=== PATIENT | female | born 1940 | race Caucasian/White ===

== ENCOUNTER 2017-02-20 09:22 | Outpatient (CLI) | payer MEDICARE, OTHER ==
[~2017-02-20 09:22] MED LIST: LANS15CA18 PO; TRAM50TA2 PO
== END 2017-02-20 23:59 | disposition home or self-care (01) ==
LOC: RAD 09:22
PROVIDERS: ATTEND Family Medicine
DX: I61.9 Nontraumatic intracerebral hemorrhage, unspecified (principal); S09.90XA Unspecified injury of head, initial encounter; G31.9 Degenerative disease of nervous system, unspecified; K59.1 Functional diarrhea; X58.XXXA Exposure to other specified factors, initial encounter; Y93.89 Activity, other specified; Y92.89 Other specified places as the place of occurrence of the external cause; Y99.8 Other external cause status
CPT/HCPCS: 70551; 76700; 76856

== ENCOUNTER 2017-09-06 02:58 | Outpatient (CLI) | payer SELFPAY ==
[2017-09-08] MEDS ORDERED: CEPH500C2 PO (01:02)
[2017-09-08] MEDS ORDERED: TRIA15CR61 TOP (01:02)
[2017-09-08] MEDS ORDERED: CETI10CA PO (01:02)
[2017-09-08] MEDS ORDERED: DIPH25CA83 PO (01:02)
== END 2017-09-06 23:59 | disposition home or self-care (01) ==
LOC: HW VAS 02:58
DX: Z13.6 Encounter for screening for cardiovascular disorders (principal)

== ENCOUNTER 2018-04-16 08:54 | Inpatient (IN) | payer MEDICARE, OTHER | END 2018-04-17 15:30 | disposition home or self-care (01) | LOC: PAS IN 08:54 → ORTHO 4S 16:35 | DX: M25.511 Pain in right shoulder (principal); D62 Acute posthemorrhagic anemia; M19.011 Primary osteoarthritis, right shoulder; M75.121 Complete rotator cuff tear or rupture of right shoulder, not specified as traumatic; S42.101S Fracture of unspecified part of scapula, right shoulder, sequela; M81.0 Age-related osteoporosis without current pathological fracture; Z86.73 Personal history of transient ischemic attack (TIA), and cerebral infarction without residual deficits ==

== ENCOUNTER 2018-07-12 10:44 | Outpatient (CLI) | payer MEDICARE, OTHER ==
[~2018-07-12 10:44] MED LIST changes: +ACET325T55 PO; +ASPI-1 PO; +CHOL10002 PO; -LANS15CA18 PO; +LOSA100T57 PO; +METO-395 PO; +OSC500T PO; +TERI2.4P SUBCUT; -TRAM50TA2 PO
== END 2018-07-12 23:59 | disposition home or self-care (01) ==
LOC: RAD 10:44
PROVIDERS: ATTEND Family Medicine
DX: R19.7 Diarrhea, unspecified (principal); Z87.891 Personal history of nicotine dependence
CPT/HCPCS: 76700

== ENCOUNTER 2019-05-14 11:41 | Emergency (ER) | payer MEDICARE, OTHER ==
[~2019-05-14] VITALS: Ht 167.6 cm; Wt 67.9 kg
[2019-05-14] MEDS ORDERED: ondansetron/PF 4mg/2ml inj IV ONE (12:20)
[2019-05-14] MEDS ORDERED: normal saline 1000ml 1,000 ML IV ONE ×2 (12:20→13:05)
[2019-05-14 12:44] LABS: BASOPHILS % (AUTO) 0.4 % (0-1); EOSINOPHILS % (AUTO) 0.4 % (0-6); HEMATOCRIT 41.6 % (35.0-45.0); HEMOGLOBIN 14.1 g/dl (12.0-16.0); LYMPHOCYTES % (AUTO) 23.3 % (21-51); MEAN CORPUSCULAR HEMOGLOBIN 29.8 PG (27.0-31.0); MEAN CORPUSCULAR HGB CONC 33.9 g/dL (33.0-36.5); MEAN PLATELET VOLUME 8.7 FL (7.4-10.4); MONOCYTES # (AUTO) 0.5 X10'3 (0-0.9); MONOCYTES % (AUTO) 10.9 % (2-12); NEUTROPHILS # (AUTO) 2.7 X10'3 (1.8-7.7); PLATELET COUNT 202 X10'3 (140-440); RED BLOOD COUNT 4.73 X10'6 (4.20-5.60); RED CELL DISTRIBUTION WIDTH 13.7 % (11.5-14.5); WHITE BLOOD COUNT 4.2 X10'3 (4.5-11.0)
[2019-05-14 12:56] LABS: PARTIAL THROMBOPLASTIN TIME 28 SECONDS (22-32)
[2019-05-14 12:58] LABS: ALANINE AMINOTRANSFERASE 25 U/L (12-78); ALBUMIN 3.6 G/DL (3.4-5.0); ALKALINE PHOSPHATASE 75 IU/L (46-116); ANION GAP 10 (8-16); ASPARTATE AMINO TRANSFERASE 43 U/L (10-37); BILIRUBIN,TOTAL 0.3 MG/DL (0.1-1.0); BLOOD UREA NITROGEN 27 MG/DL (7-18); BUN/CREATININE RATIO 20.9 (6.6-38.0); CALCIUM 8.9 MG/DL (8.5-10.1); CHLORIDE 97 MMOL/L (99-107); CREATININE 1.29 MG/DL (0.40-0.90); GLUCOSE 91 MG/DL (70-104); POTASSIUM 3.5 MMOL/L (3.5-5.1); SODIUM 133 MMOL/L (135-145); TOTAL CARBON DIOXIDE 26.3 MMOL/L (24-32); TOTAL PROTEIN 7.1 G/DL (6.4-8.2); eGFR 40 ML/MIN
[2019-05-14 13:03] LABS: TROPONIN I < 0.04 NG/ML (0.0-0.05)
[2019-05-14 14:55] LABS: CLARITY,URINE CLOUDY (Clear); COLOR,URINE YELLOW (Yellow); GLUCOSE, URINE NEGATIVE (Neg); KETONES,URINE NEGATIVE (Neg); LEUKOCYTE ESTERASE ,URINE SMALL (Neg); NITRITES, URINE NEGATIVE (Neg); OCCULT BLOOD,URINE SMALL (Neg); PROTEIN,URINE 30 mg/dl (Neg); UA COLLECTION TYPE CLN CATCH MIDSTREAM
[2019-05-14 15:09] LABS: BACTERIA,URINE 4+ /HPF (Neg); SQUAMOUS EPITHELIAL CELL,UR MANY /LPF (FEW)
[2019-05-14 15:10] LABS: WBC,URINE TNTC /HPF (0-4)
[2019-05-14 16:06] VITALS: BP 105/70
--- NOTE | 2019-05-17 15:25 | NUR ---
SMS MESSAGE LEFT WITH OUR PHONE NUMBER. UNABLE TO LEAVE A VERBAL MESSAGE
--- NOTE | 2019-05-20 19:00 | NUR ---
CALL PLACED TO PT FOR POSITIVE URINE CULTURE RESULTS, PT ASKED THAT RX BE CALLED IN TO [facility], RX FOR KEFLEX 500MG PO QID X [address] MORELAND CALLED IN.
== END 2019-05-14 16:08 | disposition home or self-care (01) ==
LOC: ER 11:41
DX: E86.0 Dehydration (principal); I10 Essential (primary) hypertension; Z90.89 Acquired absence of other organs; Z87.891 Personal history of nicotine dependence; Z79.82 Long term (current) use of aspirin; Z79.899 Other long term (current) drug therapy
CPT/HCPCS: 36415; 70450; 71045; 80053; 81001; 83605; 84145; 84484; 85025; 85610; 85730; 87040; 87077; 87088; 87186; 93005; 96361; 96374; 99285; J2405; J7030

== ENCOUNTER 2019-10-01 09:26 | Day surgery (SDC) | payer MEDICARE, OTHER ==
[~2019-10-01 09:26] MED LIST changes: -ACET325T55 PO; +AMLO5TAB16 PO; -ASPI-1 PO; -CHOL10002 PO; +LEVO750T21 PO; +METO-384 PO; -METO-395 PO; +OMEP-50 PO; -OSC500T PO; -TERI2.4P SUBCUT; +WARF4TAB69 PO
[2019-10-01] MEDS ORDERED: LIDOcaine 2% 5ml jelly ONE (10:01)
== END 2019-10-01 11:03 | disposition home or self-care (01) ==
LOC: WOUND CARE 09:26
PROVIDERS: ATTEND Nurse Practitioner
DX: L97.122 Non-pressure chronic ulcer of left thigh with fat layer exposed (principal); L02.416 Cutaneous abscess of left lower limb; I10 Essential (primary) hypertension; K21.9 Gastro-esophageal reflux disease without esophagitis; E89.2 Postprocedural hypoparathyroidism; E87.1 Hypo-osmolality and hyponatremia; E87.6 Hypokalemia; I48.0 Paroxysmal atrial fibrillation; E46 Unspecified protein-calorie malnutrition; Z79.01 Long term (current) use of anticoagulants; Z79.899 Other long term (current) drug therapy; Z87.891 Personal history of nicotine dependence; Z90.49 Acquired absence of other specified parts of digestive tract; Z68.26 Body mass index [BMI] 26.0-26.9, adult
CPT/HCPCS: 97597; 97598

== ENCOUNTER 2019-10-08 09:33 | Day surgery (SDC) | payer MEDICARE, OTHER ==
[2019-10-08] MEDS ORDERED: LIDOcaine 2% 5ml jelly ONE (10:01)
== END 2019-10-08 10:36 | disposition home or self-care (01) ==
LOC: WOUND CARE 09:33
PROVIDERS: ATTEND Nurse Practitioner
DX: L97.122 Non-pressure chronic ulcer of left thigh with fat layer exposed (principal); L02.416 Cutaneous abscess of left lower limb; I10 Essential (primary) hypertension; K21.9 Gastro-esophageal reflux disease without esophagitis; E89.2 Postprocedural hypoparathyroidism; E87.1 Hypo-osmolality and hyponatremia; E87.6 Hypokalemia; I48.0 Paroxysmal atrial fibrillation; E46 Unspecified protein-calorie malnutrition; Z79.01 Long term (current) use of anticoagulants; Z79.899 Other long term (current) drug therapy; Z87.891 Personal history of nicotine dependence; Z90.49 Acquired absence of other specified parts of digestive tract; Z68.26 Body mass index [BMI] 26.0-26.9, adult
CPT/HCPCS: 97597; 97598

== ENCOUNTER → 2019-10-29 | Day surgery (SDC) | payer MEDICARE, OTHER ==
[~2019-10-29] MED LIST changes: +LIDOcaine 2% 5ml jelly ONE
== END | disposition home or self-care (01) ==
LOC: WOUND CARE 09:45
PROVIDERS: ATTEND Nurse Practitioner
DX: L97.122 Non-pressure chronic ulcer of left thigh with fat layer exposed (principal); L02.416 Cutaneous abscess of left lower limb; I10 Essential (primary) hypertension; K21.9 Gastro-esophageal reflux disease without esophagitis; E89.2 Postprocedural hypoparathyroidism; E87.1 Hypo-osmolality and hyponatremia; E87.6 Hypokalemia; I48.0 Paroxysmal atrial fibrillation; E46 Unspecified protein-calorie malnutrition; Z79.01 Long term (current) use of anticoagulants; Z79.899 Other long term (current) drug therapy; Z87.891 Personal history of nicotine dependence; Z90.49 Acquired absence of other specified parts of digestive tract; Z68.26 Body mass index [BMI] 26.0-26.9, adult
CPT/HCPCS: 97597

== ENCOUNTER 2020-09-19 10:32 | Emergency (ER) | payer MEDICARE, OTHER ==
[~2020-09-19] VITALS: Ht 167.6 cm; Wt 72.7 kg
[~2020-09-19 10:32] MED LIST changes: -LEVO750T21 PO; -LIDOcaine 2% 5ml jelly ONE
[2020-09-19] MEDS ORDERED: HYDR-3965 PO (12:56)
[2020-09-19] MEDS ORDERED: DICL20GE TP (12:56)
[2020-09-19] MEDS ORDERED: WALKERFR ×2 (13:27→13:28)
== END 2020-09-19 13:13 | disposition home or self-care (01) ==
LOC: ER 10:32
DX: M25.562 Pain in left knee (principal); I10 Essential (primary) hypertension; E07.9 Disorder of thyroid, unspecified; Z90.49 Acquired absence of other specified parts of digestive tract; Z98.890 Other specified postprocedural states; Z79.899 Other long term (current) drug therapy; Z79.01 Long term (current) use of anticoagulants; Z96.652 Presence of left artificial knee joint
CPT/HCPCS: 73502; 73564; 99284

== ENCOUNTER 2020-12-28 20:58 | Emergency (ER) | payer MEDICARE, OTHER ==
[~2020-12-28] VITALS: Ht 167.6 cm; Wt 70.0 kg
[~2020-12-28 20:58] MED LIST changes: +DICL20GE TP; +WALKERFR
[2020-12-28 23:36] VITALS: BP 122/79
== END 2020-12-29 02:00 | disposition home or self-care (01) ==
LOC: ER 20:58
DX: S06.0X0A Concussion without loss of consciousness, initial encounter (principal); I48.91 Unspecified atrial fibrillation; I10 Essential (primary) hypertension; Z90.89 Acquired absence of other organs; Z98.890 Other specified postprocedural states; Z79.899 Other long term (current) drug therapy; W19.XXXA Unspecified fall, initial encounter; Y93.89 Activity, other specified; Y92.89 Other specified places as the place of occurrence of the external cause; Y99.8 Other external cause status
CPT/HCPCS: 70450; 72125; 93005; 99285

== ENCOUNTER 2021-10-29 16:38 | Emergency (ER) | payer MEDICARE, OTHER ==
[~2021-10-29] VITALS: Ht 167.6 cm; Wt 71.8 kg
[~2021-10-29 16:38] MED LIST changes: -OMEP-50 PO; +OMEP20CA16 PO
[2021-10-29 22:20] VITALS: BP 175/83
[2021-10-29 22:44] LABS: BASOPHILS % (AUTO) 0.4 % (0-1); EOSINOPHILS # (AUTO) 0.2 X10'3 (0-0.9); EOSINOPHILS % (AUTO) 2.9 % (0-6); HEMATOCRIT 34.8 % (35.0-45.0); HEMOGLOBIN 11.7 g/dl (12.0-16.0); LYMPHOCYTES # (AUTO) 1.5 X10'3 (1.1-4.8); LYMPHOCYTES % (AUTO) 27.2 % (21-51); MEAN CORPUSCULAR HEMOGLOBIN 29.6 PG (27.0-31.0); MEAN CORPUSCULAR HGB CONC 33.6 g/dL (33.0-36.5); MEAN PLATELET VOLUME 7.8 FL (7.4-10.4); MONOCYTES # (AUTO) 0.4 X10'3 (0-0.9); NEUTROPHILS # (AUTO) 3.4 X10'3 (1.8-7.7); NEUTROPHILS % (AUTO) 62.5 % (42-75); PLATELET COUNT 269 X10'3 (140-440); RED BLOOD COUNT 3.96 X10'6 (4.20-5.60); RED CELL DISTRIBUTION WIDTH 15.6 % (11.5-14.5); WHITE BLOOD COUNT 5.4 X10'3 (4.5-11.0)
[2021-10-29 22:58] LABS: ALANINE AMINOTRANSFERASE 64 U/L (12-78); ALBUMIN 3.4 G/DL (3.4-5.0); ALBUMIN/GLOBULIN RATIO 0.9 (1.1-1.5); ALKALINE PHOSPHATASE 143 IU/L (46-116); ANION GAP 11 (8-16); ASPARTATE AMINO TRANSFERASE 49 U/L (10-37); BILIRUBIN,TOTAL 0.3 MG/DL (0.1-1.0); BLOOD UREA NITROGEN 22 MG/DL (7-18); BUN/CREATININE RATIO 23.9 (6.6-38.0); CALCIUM 8.2 MG/DL (8.5-10.1); CHLORIDE 102 MMOL/L (99-107); CREATININE 0.92 MG/DL (0.40-0.90); GLUCOSE 100 MG/DL (70-104); POTASSIUM 3.7 MMOL/L (3.5-5.1); SODIUM 136 MMOL/L (135-145); TOTAL CARBON DIOXIDE 23.4 MMOL/L (24-32); eGFR 59 ML/MIN
[2021-10-29 22:59] LABS: APTT 45 SECONDS (22-32)
[2021-10-29] MEDS ORDERED: acetaminophen 325mg tablet PO ONE (23:25)
== END 2021-10-29 23:53 | disposition home or self-care (01) ==
LOC: ER 16:38
DX: S22.49XA Multiple fractures of ribs, unspecified side, initial encounter for closed fracture (principal); J90 Pleural effusion, not elsewhere classified; M54.89 Other dorsalgia; R05.9 Cough, unspecified; I48.91 Unspecified atrial fibrillation; I10 Essential (primary) hypertension; Z90.89 Acquired absence of other organs; Z98.890 Other specified postprocedural states; Z79.899 Other long term (current) drug therapy; W19.XXXA Unspecified fall, initial encounter; Y93.89 Activity, other specified; Y92.89 Other specified places as the place of occurrence of the external cause; Y99.8 Other external cause status; M54.2 Cervicalgia
CPT/HCPCS: 36415; 71045; 71250; 72125; 72128; 73030; 80053; 85025; 85610; 85730; 99285

== ENCOUNTER 2022-11-16 09:58 | Emergency (ER) | payer MEDICARE, OTHER, MEDICAID ==
[~2022-11-16] VITALS: Ht 167.6 cm; Wt 64.6 kg
[~2022-11-16 09:58] MED LIST changes: -LOSA100T57 PO; +LOSA100T58 PO
[2022-11-16 10:04] VITALS: TEMP 98
[2022-11-16 12:49] VITALS: BP 159/82; PULSE 65; RESP 16; O2SAT 99
[2022-11-16] MEDS ORDERED: acetaminophen 325mg tablet PO ONE (14:00)
== END 2022-11-16 14:49 | disposition home or self-care (01) ==
LOC: ER 09:59
DX: S01.01XA Laceration without foreign body of scalp, initial encounter (principal); S40.012A Contusion of left shoulder, initial encounter; I10 Essential (primary) hypertension; Z79.899 Other long term (current) drug therapy; Z79.1 Long term (current) use of non-steroidal anti-inflammatories (NSAID); Z98.890 Other specified postprocedural states; W19.XXXA Unspecified fall, initial encounter; Y93.89 Activity, other specified; Y92.89 Other specified places as the place of occurrence of the external cause; Y99.8 Other external cause status
CPT/HCPCS: 12001; 70450; 99284

== ENCOUNTER 2023-05-23 07:34 | Day surgery (SDC) | payer MEDICARE, MEDICAID ==
[2023-05-22 15:42] LABS: BASOPHILS % (AUTO) 0.4 % (0-1); EOSINOPHILS # (AUTO) 0.2 X10'3 (0-0.9); EOSINOPHILS % (AUTO) 2.8 % (0-6); HEMATOCRIT 37.1 % (35.0-45.0); HEMOGLOBIN 12.3 g/dl (12.0-16.0); LYMPHOCYTES # (AUTO) 1.2 X10'3 (1.1-4.8); LYMPHOCYTES % (AUTO) 17.6 % (21-51); MEAN CORPUSCULAR HEMOGLOBIN 29.7 PG (27.0-31.0); MEAN CORPUSCULAR HGB CONC 33.2 g/dL (33.0-36.5); MEAN CORPUSCULAR VOLUME 89.4 FL (78-98); MONOCYTES # (AUTO) 0.4 X10'3 (0-0.9); MONOCYTES % (AUTO) 6.7 % (2-12); NEUTROPHILS # (AUTO) 4.9 X10'3 (1.8-7.7); NEUTROPHILS % (AUTO) 72.5 % (42-75); PLATELET COUNT 237 X10'3 (140-440); RED BLOOD COUNT 4.15 X10'6 (4.20-5.60); RED CELL DISTRIBUTION WIDTH 14.5 % (11.5-14.5); WHITE BLOOD COUNT 6.7 X10'3 (4.5-11.0)
[2023-05-22 15:48] LABS: ALBUMIN 3.4 G/DL (3.4-5.0); ANION GAP 11 (8-16); BLOOD UREA NITROGEN 22 MG/DL (7-18); BUN/CREATININE RATIO 17.9 (10.0-20.0); CALCIUM 8.1 MG/DL (8.5-10.1); CHLORIDE 105 MMOL/L (99-107); CREATININE 1.23 MG/DL (0.40-0.90); GLUCOSE 100 MG/DL (70-104); POTASSIUM 4.3 MMOL/L (3.5-5.1); SODIUM 141 MMOL/L (135-145); eGFR 42 ML/MIN
[2023-05-22 15:53] LABS: APTT 30 SECONDS (22-32); INR 1.2 INR; PROTHROMBIN TIME 12.3 SECONDS (9.0-12.0)
[2023-05-23] VITALS (14 sets, daily range): BP systolic 103–145; BP diastolic 44–78; PULSE 64–84; RESP 12–26; TEMP 97.7; O2SAT 93–96
[~2023-05-23] VITALS: Ht 167.6 cm; Wt 73.1 kg
[2023-05-23] MEDS: LORazepam 0.5 MG tablet PO PRN (08:31)
[2023-05-23] MEDS: sodium bicarbonate 1meq/ml syr 150 ML in dextrose 5%-water 1,000 ML IV SCH (08:31)
[2023-05-23] MEDS: diphenhydrAMINE 25mg capsule PO PRN (08:31)
[2023-05-23] MEDS: normal saline 1,000 ML IV SCH (08:31)
[2023-05-23] MEDS ORDERED: ADV50250 NAS (08:42)
[2023-05-23] MEDS ORDERED: CETI-194 PO (08:42)
[2023-05-23] MEDS ORDERED: OXYB5TAB21 PO (08:42)
[2023-05-23] MEDS ORDERED: ATOR10TA70 PO (08:42)
[2023-05-23] MEDS ORDERED: ACET-1008 PO (09:08)
[2023-05-23] MEDS ORDERED: WARF-55 PO (09:08)
[2023-05-23] MEDS ORDERED: CYAN50007 PO (09:08)
[2023-05-23] MEDS ORDERED: FLUT16SP BOTHNARES (09:08)
[2023-05-23] MEDS ORDERED: pneumococcal 23-VAL P-sac vacc 25 mcg/0.5ml vial IMVAC ONE (09:20)
[2023-05-23] MEDS ORDERED: LIDOcaine 1% (10mg/ml) 2ml vial ONE (10:08)
[2023-05-23] MEDS ORDERED: midazolam 1 mg/ML 2ml injection ONE (10:08)
[2023-05-23] MEDS ORDERED: iohexol 350MG/ML 100ml bottle IV ONE (10:08)
[2023-05-23] MEDS ORDERED: verapamil 2.5 mg/ml inj IV ONE (10:08)
[2023-05-23] MEDS ORDERED: fentaNYL/PF 50MCG/1 ML 2ML syringe ONE (10:08)
[2023-05-23] MEDS ORDERED: heparin 1,000unit/ml 10ml vial 10 ML ONE (10:08)
[2023-05-23] MEDS ORDERED: nitroGLYCERIN 500mcg/5mL D5W 5 ML IV ONE (10:09)
[2023-05-23] MEDS ORDERED: hydrALAZINE 20mg/ml inj. IV ONE (11:12)
== END 2023-05-23 16:20 | disposition home or self-care (01) ==
LOC: SSTAY O 07:34
PROVIDERS: ATTEND Internal Medicine Cardiovascular Disease
DX: R94.39 Abnormal result of other cardiovascular function study (principal); I25.10 Atherosclerotic heart disease of native coronary artery without angina pectoris; E78.5 Hyperlipidemia, unspecified; I47.10 Supraventricular tachycardia, unspecified; K21.9 Gastro-esophageal reflux disease without esophagitis; I12.9 Hypertensive chronic kidney disease with stage 1 through stage 4 chronic kidney disease, or unspecified chronic kidney disease; N18.9 Chronic kidney disease, unspecified; F32.A Depression, unspecified; M81.0 Age-related osteoporosis without current pathological fracture; I48.0 Paroxysmal atrial fibrillation; I36.1 Nonrheumatic tricuspid (valve) insufficiency; I27.29 Other secondary pulmonary hypertension; Z23 Encounter for immunization; Z79.01 Long term (current) use of anticoagulants; Z79.899 Other long term (current) drug therapy; Z98.890 Other specified postprocedural states; Z88.8 Allergy status to other drugs, medicaments and biological substances
CPT/HCPCS: 36415; 76937; 80048; 85025; 85610; 85730; 90732; 93005; 93458; 99152; 99153; A6258; G0009; J0360; J1644; J2250; J3010; J3490; J7030; J7070; Q0163; Q9967; A6402; C1725; C1894

== ENCOUNTER 2023-06-25 06:31 | Inpatient (IN) | payer MEDICARE, MEDICAID ==
[2023-06-19 14:48] LABS: BASOPHILS % (AUTO) 0.3 % (0-1); EOSINOPHILS # (AUTO) 0.2 X10'3 (0-0.9); EOSINOPHILS % (AUTO) 2.3 % (0-6); LYMPHOCYTES # (AUTO) 1.3 X10'3 (1.1-4.8); LYMPHOCYTES % (AUTO) 18.6 % (21-51); MEAN CORPUSCULAR HEMOGLOBIN 29.7 PG (27.0-31.0); MEAN CORPUSCULAR HGB CONC 33.3 g/dL (33.0-36.5); MEAN CORPUSCULAR VOLUME 89.3 FL (78-98); MEAN PLATELET VOLUME 8.6 FL (7.4-10.4); MONOCYTES # (AUTO) 0.5 X10'3 (0-0.9); MONOCYTES % (AUTO) 6.9 % (2-12); NEUTROPHILS # (AUTO) 5.2 X10'3 (1.8-7.7); NEUTROPHILS % (AUTO) 71.9 % (42-75); PRE OP HEMATOCRIT 35.4 % (35.0-45.0); PRE OP HEMOGLOBIN 11.8 g/dL (12.0-16.0); PRE OP PLATELET COUNT 239 X10'3 (140-440); PRE OP WHITE BLOOD COUNT 7.2 10'3 (4.8-10.8); RED BLOOD COUNT 3.97 X10'6 (4.20-5.60); RED CELL DISTRIBUTION WIDTH 15.7 % (11.5-14.5)
[2023-06-19 15:07] LABS: ALBUMIN 3.1 G/DL (3.4-5.0); ALBUMIN/GLOBULIN RATIO 0.8 (1.1-1.5); ALKALINE PHOSPHATASE 104 IU/L (46-116); BLOOD UREA NITROGEN 23 MG/DL (7-18); BUN/CREATININE RATIO 20.2 (10.0-20.0); CALCIUM 8.5 MG/DL (8.5-10.1); CHLORIDE 106 MMOL/L (99-107); CREATININE 1.14 MG/DL (0.40-0.90); PRE OP ALT 21 U/L (30-65); PRE OP ANION GAP 11 (8-16); PRE OP AST 19 U/L (10-37); PRE OP BILIRUB, TOTAL 0.4 MG/DL (0.0-1.0); PRE OP GLUCOSE 97 MG/DL (70-104); PRE OP POTASSIUM 3.9 MMOL/L (3.4-5.1); PRE OP SODIUM 142 MMOL/L (135-145); TOTAL CARBON DIOXIDE 25.2 MMOL/L (24-32); eGFR 46 ML/MIN
[2023-06-25] VITALS (27 sets, daily range): BP systolic 115–144; BP diastolic 57–85; PULSE 57–82; RESP 10–20; TEMP 96.6–97.6; O2SAT 91–98
[~2023-06-25] VITALS: Ht 167.6 cm; Wt 73.5 kg
[2023-06-25] MEDS: DOCUMENT DATE & TIME OF BETA-BLOCKER PO ONE (05:30)
[~2023-06-25 06:31] MED LIST changes: +ACET-1008 PO; +ATOR10TA70 PO; +CALC-1215 PO; +CYAN500T46 PO; -DICL20GE TP; +FLUT16SP BOTHNARES; +LORA10TA7 PO; +MULT-1141 PO; +OXYB5TAB21 PO; +PSYL575P22 PO; +TRAM50TA2 PO; -WALKERFR; +WARF-55 PO; -WARF4TAB69 PO
[2023-06-25] MEDS ORDERED: tetracaine 1% (10mg/ml) pres. free inj. ONE (07:08)
[2023-06-25] MEDS: famotidine 20mg tablet PO ONE (07:42)
[2023-06-25] MEDS: ringers solution, lacted 1,000 ML IV SCH ×2 (07:43→08:40)
[2023-06-25] MEDS: vancomycin/NS 1 GM in NS 250 ML IV ONE (07:58)
[2023-06-25] MEDS: aspirin 325mg tablet PO SCH (08:30)
[2023-06-25] MEDS ORDERED: fentaNYL/PF 50MCG/1 ML 2ML syringe IV PRN ×2 (08:40)
[2023-06-25] MEDS ORDERED: morphine 4 MG/ML inj SYRINge IV PRN (08:40)
[2023-06-25] MEDS ORDERED: hydrALAZINE 20mg/ml inj. IV PRN (08:40)
[2023-06-25] MEDS ORDERED: labetalol 20mg/4ml (5mg/ml) syringe IV PRN (08:40)
[2023-06-25] MEDS ORDERED: ondansetron/PF 4mg/2ml inj IV PRN ×2 (08:40→12:35)
[2023-06-25] MEDS ORDERED: morphine 2 MG/ML inj. syringe IV PRN (08:40)
[2023-06-25] MEDS: tranexamic acid 650mg tablet PO ONE (09:30)
[2023-06-25] MEDS ORDERED: cefazolin 2gm/D5W 100ml IV.soln IV ONE (09:54)
[2023-06-25] MEDS ORDERED: fentaNYL/PF 50MCG/1 ML 2ML syringe ONE (09:56)
[2023-06-25] MEDS ORDERED: MIDAZolam 1 MG/ML 5ML VIAL ONE (09:56)
[2023-06-25] MEDS ORDERED: ROPIVAcaine 0.5% (5mg/ml) 30ml vial ONE ×2 (09:56→09:58)
[2023-06-25] MEDS ORDERED: dexamethasone sod phosphate 4mg/ml inj. ONE (09:58)
[2023-06-25] MEDS ORDERED: MIDAZolam 1mg/ml 10ml vial ONE (10:47)
[2023-06-25] MEDS: BUPIVACAINE/MELOXICAM 14 ML VIAL IL ONE (10:50)
[2023-06-25] MEDS ORDERED: bisacodyl 10mg suppository rectal RC PRN (12:35)
[2023-06-25] MEDS ORDERED: HYDROmorphone 1 mg/ml syringe IV PRN (12:35)
[2023-06-25] MEDS ORDERED: diphenhydrAMINE 25mg capsule PO PRN ×2 (12:35)
[2023-06-25] MEDS ORDERED: magnesium hydroxide 30ml (MOM) UD suspension PO PRN (12:35)
[2023-06-25] MEDS ORDERED: acetaminophen 325mg tablet PO PRN ×2 (12:35)
[2023-06-25] MEDS ORDERED: HYDROmorphone inj. 0.5 MG/0.5 ML DISP.SYRIN IV PRN (12:35)
[2023-06-25] MEDS ORDERED: naloxone 0.4 mg/ml inj IV PRN (12:35)
[2023-06-25] MEDS ORDERED: oxybutynin 5mg tablet PO SCH (13:00)
[2023-06-25 13:15] LABS: BASOPHILS # (AUTO) 0.1 X10'3 (0-0.2); BASOPHILS % (AUTO) 0.6 % (0-1); EOSINOPHILS # (AUTO) 0.4 X10'3 (0-0.9); EOSINOPHILS % (AUTO) 3.3 % (0-6); LYMPHOCYTES # (AUTO) 1.8 X10'3 (1.1-4.8); LYMPHOCYTES % (AUTO) 15.9 % (21-51); MEAN PLATELET VOLUME 9.2 FL (7.4-10.4); MONOCYTES # (AUTO) 0.9 X10'3 (0-0.9); MONOCYTES % (AUTO) 7.5 % (2-12); NEUTROPHILS # (AUTO) 8.4 X10'3 (1.8-7.7); NEUTROPHILS % (AUTO) 72.7 % (42-75); PRE OP PLATELET COUNT 248 X10'3 (140-440); PRE OP WHITE BLOOD COUNT 11.6 10'3 (4.8-10.8)
[2023-06-25 13:30] LABS: PRE OP PARTIAL THROMB. TIME 24 SECONDS (22-32); PROTHROMBIN TIME 10.7 SECONDS (9.0-12.0)
[2023-06-25 13:42] LABS: RED BLOOD COUNT 4.51 X10'6 (4.20-5.60)
[2023-06-25 13:43] LABS: MEAN CORPUSCULAR HEMOGLOBIN 23.7 PG (27.0-31.0); MEAN CORPUSCULAR HGB CONC 32.8 g/dL (33.0-36.5); MEAN CORPUSCULAR VOLUME 72.1 FL (78-98); PRE OP HEMATOCRIT 32.5 % (35.0-45.0); PRE OP HEMOGLOBIN 10.7 g/dL (12.0-16.0); RED CELL DISTRIBUTION WIDTH 19.9 % (11.5-14.5)
[2023-06-25 14:34] LABS: ANISOCYTOSIS 2+; ELLIPTOCYTES FEW; LARGE PLATELETS FEW; MICROCYTOSIS 1+; PLATELET ESTIMATE NORMAL; TEAR DROP CELLS FEW
[2023-06-25] MEDS: acetaminophen 325mg tablet PO SCH (17:40)
[2023-06-25] MEDS: potassium cl 20mEq in 1/2 NS 1,000 ML IV SCH (17:50)
[2023-06-25] MEDS: ceFAZolin/D5W- 1GM premix 50 ML IV SCH ×2 (20:10→20:53)
[2023-06-25] MEDS: sennosides 8.6mg tablet PO SCH (20:28)
[2023-06-25] MEDS: metoprolol succinate 25mg (24-HOUR) SR. Tablet PO SCH (20:30)
[2023-06-25] MEDS: oxyCODONE IR 5mg (immed. release) tablet PO PRN (20:38)
[2023-06-25] MEDS: oxybutynin 5mg tablet PO SCH (21:00)
[2023-06-25] MEDS: vancomycin/NS 1 GM ADD-VANTAGE 250 ML IV SCH (21:59)
[2023-06-26] MEDS: ceFAZolin/D5W- 1GM premix 50 ML IV SCH (04:00)
[2023-06-26] MEDS ORDERED: cefazolin 2gm/D5W 100mL 100 ML IV ONE (05:30)
[2023-06-26 06:25] LABS: BASOPHILS % (AUTO) 0.1 % (0-1); EOSINOPHILS % (AUTO) 0 % (0-6); HEMATOCRIT 31.2 % (35.0-45.0); HEMOGLOBIN 10.5 g/dl (12.0-16.0); LYMPHOCYTES # (AUTO) 0.7 X10'3 (1.1-4.8); LYMPHOCYTES % (AUTO) 6.5 % (21-51); MEAN CORPUSCULAR HEMOGLOBIN 30.3 PG (27.0-31.0); MEAN CORPUSCULAR HGB CONC 33.7 g/dL (33.0-36.5); MEAN CORPUSCULAR VOLUME 89.8 FL (78-98); MEAN PLATELET VOLUME 9.6 FL (7.4-10.4); MONOCYTES # (AUTO) 0.7 X10'3 (0-0.9); NEUTROPHILS # (AUTO) 9.1 X10'3 (1.8-7.7); NEUTROPHILS % (AUTO) 86.4 % (42-75); PLATELET COUNT 222 X10'3 (140-440); RED BLOOD COUNT 3.47 X10'6 (4.20-5.60); RED CELL DISTRIBUTION WIDTH 15.2 % (11.5-14.5); WHITE BLOOD COUNT 10.5 X10'3 (4.5-11.0)
[2023-06-26 06:30] LABS: PROTHROMBIN TIME 10.7 SECONDS (9.0-12.0)
[2023-06-26 06:38] LABS: ANION GAP 9 (8-16); CHLORIDE 103 MMOL/L (99-107); POTASSIUM 4.4 MMOL/L (3.5-5.1); SODIUM 134 MMOL/L (135-145); TOTAL CARBON DIOXIDE 22.5 MMOL/L (24-32)
[2023-06-26 07:05] VITALS: BP 137/64; PULSE 66; RESP 16; TEMP 97.7; O2SAT 93
[2023-06-26] MEDS ORDERED: PSYLLIUM HUSK PO SCH (08:00)
[2023-06-26] MEDS ORDERED: warfarin 5mg tablet PO SCH (08:00)
[2023-06-26] MEDS ORDERED: [UNRECOGNIZED DRUG - OTHER] PO SCH (08:00)
[2023-06-26] MEDS: multivitamins, therapeutics tablet PO SCH (08:05)
[2023-06-26] MEDS: cyanocobalamin 500mcg tablet PO SCH (08:05)
[2023-06-26] MEDS: losartan 50mg tablet PO SCH (08:06)
[2023-06-26] MEDS: loratadine 10mg tablet PO SCH (08:07)
[2023-06-26] MEDS: pantoprazole 40mg Tablet.DR PO SCH (08:07)
[2023-06-26] MEDS: calcium carbonate/vitamin D3 tablet PO SCH (08:08)
[2023-06-26] MEDS: amLODIPine 5mg tablet PO SCH (08:08)
[2023-06-26] MEDS: atorvastatin 10mg tablet PO SCH (08:58)
[2023-06-26 14:00] VITALS: BP 135/57; PULSE 68; RESP 16; TEMP 97.7; O2SAT 98
[2023-06-26 18:00] VITALS: BP 131/62; PULSE 68; RESP 16; TEMP 97.3; O2SAT 95
[2023-06-26 20:11] VITALS: RESP 18; O2SAT 98
[2023-06-26] MEDS: celeCOXIB 100mg capsule PO SCH (20:29)
[2023-06-26] MEDS: warfarin 5mg tablet PO SCH (20:30)
[2023-06-26 22:00] VITALS: BP 132/66; PULSE 76; RESP 14; TEMP 97.7; O2SAT 93
[2023-06-27 06:00] VITALS: BP 129/54; PULSE 67; RESP 15; TEMP 97.4; O2SAT 93
[2023-06-27 07:36] LABS: BASOPHILS % (AUTO) 0.5 % (0-1); EOSINOPHILS # (AUTO) 0.3 X10'3 (0-0.9); EOSINOPHILS % (AUTO) 3.6 % (0-6); HEMATOCRIT 28.7 % (35.0-45.0); HEMOGLOBIN 9.8 g/dl (12.0-16.0); LYMPHOCYTES # (AUTO) 1.6 X10'3 (1.1-4.8); LYMPHOCYTES % (AUTO) 22.1 % (21-51); MEAN CORPUSCULAR HEMOGLOBIN 30.4 PG (27.0-31.0); MEAN CORPUSCULAR VOLUME 89.3 FL (78-98); MEAN PLATELET VOLUME 9.2 FL (7.4-10.4); MONOCYTES # (AUTO) 0.8 X10'3 (0-0.9); MONOCYTES % (AUTO) 10.2 % (2-12); NEUTROPHILS # (AUTO) 4.7 X10'3 (1.8-7.7); NEUTROPHILS % (AUTO) 63.6 % (42-75); PLATELET COUNT 200 X10'3 (140-440); PROTHROMBIN TIME 10.5 SECONDS (9.0-12.0); RED BLOOD COUNT 3.22 X10'6 (4.20-5.60); RED CELL DISTRIBUTION WIDTH 15.2 % (11.5-14.5); WHITE BLOOD COUNT 7.4 X10'3 (4.5-11.0)
[2023-06-27] MEDS ORDERED: acetaminophen 325mg tablet PO PRN (08:25)
[2023-06-27] MEDS: psyllium seed 5.8 gm packet (sugar-free) PO SCH (08:35)
[2023-06-27 10:00] VITALS: BP 112/58; PULSE 63; RESP 18; TEMP 97; O2SAT 92
[2023-06-27 14:00] VITALS: RESP 18; O2SAT 94
[2023-06-27 18:00] VITALS: BP 137/59; PULSE 71; RESP 18; TEMP 98.1; O2SAT 93
[2023-06-27 20:00] VITALS: RESP 16; O2SAT 96
[2023-06-27 22:00] VITALS: BP 118/68; PULSE 78; RESP 15; TEMP 97.7; O2SAT 94
[2023-06-28 06:00] VITALS: BP_SYST 121; BP_SYST 148; BP_DIAS 59; BP_DIAS 61; PULSE 69; PULSE 72; RESP 16; RESP 18; TEMP 97.4; TEMP 98.3; O2SAT 93; O2SAT 94
[2023-06-28 07:27] LABS: BASOPHILS % (AUTO) 0.4 % (0-1); EOSINOPHILS # (AUTO) 0.3 X10'3 (0-0.9); EOSINOPHILS % (AUTO) 3.8 % (0-6); HEMATOCRIT 28.6 % (35.0-45.0); HEMOGLOBIN 9.8 g/dl (12.0-16.0); LYMPHOCYTES # (AUTO) 1.6 X10'3 (1.1-4.8); LYMPHOCYTES % (AUTO) 20.7 % (21-51); MEAN CORPUSCULAR HEMOGLOBIN 30.6 PG (27.0-31.0); MEAN CORPUSCULAR HGB CONC 34.2 g/dL (33.0-36.5); MEAN CORPUSCULAR VOLUME 89.4 FL (78-98); MEAN PLATELET VOLUME 9.4 FL (7.4-10.4); MONOCYTES # (AUTO) 0.8 X10'3 (0-0.9); MONOCYTES % (AUTO) 10.5 % (2-12); NEUTROPHILS # (AUTO) 4.8 X10'3 (1.8-7.7); NEUTROPHILS % (AUTO) 64.6 % (42-75); PLATELET COUNT 205 X10'3 (140-440); RED CELL DISTRIBUTION WIDTH 15.5 % (11.5-14.5); WHITE BLOOD COUNT 7.5 X10'3 (4.5-11.0)
[2023-06-28 07:35] LABS: PROTHROMBIN TIME 10.9 SECONDS (9.0-12.0)
[2023-06-28 09:00] VITALS: RESP 16; O2SAT 94
[2023-06-28 10:00] VITALS: BP 121/59; PULSE 72; RESP 18; TEMP 97.4; O2SAT 93
[2023-06-28] MEDS: oxyCODONE IR 5mg (immed. release) tablet PO PRN (15:43)
[2023-06-28 15:58] VITALS: BP 106/56; PULSE 78; RESP 16; TEMP 99.4; O2SAT 93
== END 2023-06-28 16:30 | DRG 470 ==
LOC: PAS IN 06:31 → ORTHO 4S 17:33
PROVIDERS: ADMIT Orthopaedic Surgery; ATTEND Orthopaedic Surgery
PROC: 8E0Y0CZ Robotic Assisted Procedure of Lower Extremity, Open Approach (ICD-10-PCS; 2023-06-25)
PROC: 8E0YXBZ Computer Assisted Procedure of Lower Extremity (ICD-10-PCS; 2023-06-25)
PROC: 3E0T3BZ Introduction of Anesthetic Agent into Peripheral Nerves and Plexi, Percutaneous Approach (ICD-10-PCS; 2023-06-25)
PROC: 3E0T33Z Introduction of Anti-inflammatory into Peripheral Nerves and Plexi, Percutaneous Approach (ICD-10-PCS; 2023-06-25)
PROC: 0SRC0J9 Replacement of Right Knee Joint with Synthetic Substitute, Cemented, Open Approach (ICD-10-PCS; principal; 2023-06-25 09:54)
DX: M17.11 Unilateral primary osteoarthritis, right knee (principal); Z88.8 Allergy status to other drugs, medicaments and biological substances
CPT/HCPCS: 36415; 80051; 80053; 82948; 85008; 85025; 85610; 85730; 86885; 86900; 86901; 87081; 97110; 97116; 97161; 97530; A4215; A4615; A6258; A7000; C1713; C1776; G0378; J0690; J1100; J2250; J2795; J3010; J3370; J3480; J3490; J7120

== ENCOUNTER 2023-08-13 11:27 | Emergency (ER) | payer MEDICARE, MEDICAID ==
[~2023-08-13] VITALS: Ht 167.6 cm; Wt 68.2 kg
[2023-08-13 11:40] VITALS: TEMP 97.9
[2023-08-13 11:46] LABS: BASOPHILS % (AUTO) 0.5 % (0-1); EOSINOPHILS # (AUTO) 0.2 X10'3 (0-0.9); HEMATOCRIT 34.2 % (35.0-45.0); LYMPHOCYTES # (AUTO) 1.3 X10'3 (1.1-4.8); LYMPHOCYTES % (AUTO) 22.1 % (21-51); MEAN CORPUSCULAR HEMOGLOBIN 28.7 PG (27.0-31.0); MEAN CORPUSCULAR HGB CONC 32.1 g/dL (33.0-36.5); MEAN CORPUSCULAR VOLUME 89.4 FL (78-98); MONOCYTES # (AUTO) 0.6 X10'3 (0-0.9); NEUTROPHILS # (AUTO) 3.8 X10'3 (1.8-7.7); NEUTROPHILS % (AUTO) 64.4 % (42-75); PLATELET COUNT 321 X10'3 (140-440); RED BLOOD COUNT 3.83 X10'6 (4.20-5.60); RED CELL DISTRIBUTION WIDTH 15.8 % (11.5-14.5)
[2023-08-13 12:05] LABS: ALBUMIN 3.1 G/DL (3.4-5.0); ANION GAP 8 (8-16); BLOOD UREA NITROGEN 17 MG/DL (7-18); BUN/CREATININE RATIO 15.2 (10.0-20.0); CALCIUM 8.5 MG/DL (8.5-10.1); CHLORIDE 101 MMOL/L (99-107); CREATININE 1.12 MG/DL (0.40-0.90); GLUCOSE 144 MG/DL (70-104); POTASSIUM 4.3 MMOL/L (3.5-5.1); PRO BRAIN NATRIURETIC PEPTIDE 654 PG/ML (0-450); SODIUM 136 MMOL/L (135-145); TOTAL CARBON DIOXIDE 26.6 MMOL/L (24-32); eCRCL 37 ML/MIN; eGFR 47 ML/MIN
[2023-08-13 14:00] VITALS: RESP 16; O2SAT 96
[2023-08-13] MEDS: normal saline 1000ml 1,000 ML IV ONE (14:52)
[2023-08-13 16:04] VITALS: BP 136/66; PULSE 85
== END 2023-08-13 16:41 | disposition home or self-care (01) ==
LOC: ER 11:27
DX: I95.9 Hypotension, unspecified (principal); I10 Essential (primary) hypertension; I48.91 Unspecified atrial fibrillation; Z90.49 Acquired absence of other specified parts of digestive tract; Z88.8 Allergy status to other drugs, medicaments and biological substances; Z79.899 Other long term (current) drug therapy; Z79.02 Long term (current) use of antithrombotics/antiplatelets
CPT/HCPCS: 36415; 80048; 83880; 84484; 85025; 93005; 96360; 99284; J7030

== ENCOUNTER 2023-11-25 17:39 | Emergency (ER) | payer MEDICARE, OTHER, MEDICAID ==
[~2023-11-25] VITALS: Ht 167.6 cm; Wt 68.2 kg
[~2023-11-25 17:39] MED LIST changes: +AMOX1TAB15 PO; +CALC-1051 PO; -CALC-1215 PO; +DENO60DI SUBCUT; +LOPE-190 PO; -TRAM50TA2 PO
[2023-11-25 18:20] LABS: BASOPHILS % (AUTO) 0.5 % (0-1); EOSINOPHILS % (AUTO) 0.2 % (0-6); HEMATOCRIT 31.3 % (35.0-45.0); HEMOGLOBIN 10.2 g/dl (12.0-16.0); LYMPHOCYTES # (AUTO) 0.8 X10'3 (1.1-4.8); LYMPHOCYTES % (AUTO) 9.3 % (21-51); MEAN CORPUSCULAR HEMOGLOBIN 28.1 PG (27.0-31.0); MEAN CORPUSCULAR HGB CONC 32.6 g/dL (33.0-36.5); MEAN CORPUSCULAR VOLUME 86.1 FL (78-98); MEAN PLATELET VOLUME 8.5 FL (7.4-10.4); MONOCYTES # (AUTO) 0.7 X10'3 (0-0.9); MONOCYTES % (AUTO) 8.4 % (2-12); NEUTROPHILS # (AUTO) 7.1 X10'3 (1.8-7.7); NEUTROPHILS % (AUTO) 81.6 % (42-75); PLATELET COUNT 233 X10'3 (140-440); RED BLOOD COUNT 3.63 X10'6 (4.20-5.60); RED CELL DISTRIBUTION WIDTH 16.7 % (11.5-14.5); WHITE BLOOD COUNT 8.7 X10'3 (4.5-11.0)
[2023-11-25 18:34] LABS: ALANINE AMINOTRANSFERASE 16 U/L (12-78); ALBUMIN 3.1 G/DL (3.4-5.0); ALBUMIN/GLOBULIN RATIO 0.9 (1.1-1.5); ALKALINE PHOSPHATASE 84 IU/L (46-116); ANION GAP 11 (8-16); ASPARTATE AMINO TRANSFERASE 18 U/L (10-37); BILIRUBIN,TOTAL 0.8 MG/DL (0.1-1.0); BLOOD UREA NITROGEN 26 MG/DL (7-18); BUN/CREATININE RATIO 24.3 (10.0-20.0); CALCIUM 8.8 MG/DL (8.5-10.1); CHLORIDE 103 MMOL/L (99-107); CREATININE 1.07 MG/DL (0.40-0.90); GLUCOSE 103 MG/DL (70-104); POTASSIUM 3.9 MMOL/L (3.5-5.1); SODIUM 137 MMOL/L (135-145); TOTAL CARBON DIOXIDE 23.5 MMOL/L (24-32); TOTAL PROTEIN 6.7 G/DL (6.4-8.2); eCRCL 39 ML/MIN; eGFR 49 ML/MIN
[2023-11-25 18:38] LABS: INR 1.4 INR; PROTHROMBIN TIME 14.3 SECONDS (9.0-12.0)
[2023-11-25 20:22] LABS: BILIRUBIN,URINE NEGATIVE (Neg); CLARITY,URINE CLEAR (Clear); COLOR,URINE YELLOW (Yellow); GLUCOSE, URINE NEGATIVE (Neg); KETONES,URINE NEGATIVE (Neg); LEUKOCYTE ESTERASE ,URINE NEGATIVE (Neg); NITRITES, URINE NEGATIVE (Neg); OCCULT BLOOD,URINE TRACE-INTACT (Neg); PROTEIN,URINE NEGATIVE (Neg); UROBILINOGEN,URINE 0.2 E.U/dL (0.2-1.0)
[2023-11-25 21:00] LABS: UA COLLECTION TYPE CLN CATCH MIDSTREAM
[2023-11-25 21:06] VITALS: TEMP 98.6
[2023-11-25 21:06] LABS: SQUAMOUS EPITHELIAL CELL,UR FEW /LPF (FEW)
[2023-11-25 21:07] LABS: BACTERIA,URINE FEW /HPF (Neg); RBC,URINE 0-2 /HPF (0-2); TRANSITIONAL EPI CELLS,URINE FEW /HPF; WBC,URINE 0-4 /HPF (0-4)
[2023-11-25] MEDS: acetaminophen 325mg tablet PO STA (21:08)
[2023-11-25 21:22] LABS: MAGNESIUM 1.5 MG/DL (1.5-2.4)
[2023-11-25 22:16] VITALS: BP 118/70; PULSE 82; RESP 15; O2SAT 94
== END 2023-11-25 22:19 | disposition home or self-care (01) ==
LOC: ER 17:40
DX: D64.9 Anemia, unspecified (principal); M25.562 Pain in left knee; I48.91 Unspecified atrial fibrillation; I10 Essential (primary) hypertension; Z88.8 Allergy status to other drugs, medicaments and biological substances; Z88.2 Allergy status to sulfonamides; Z79.2 Long term (current) use of antibiotics; Z79.899 Other long term (current) drug therapy; Z98.890 Other specified postprocedural states
CPT/HCPCS: 36415; 71045; 80053; 81001; 83735; 85025; 85610; 87811; 99284